=== PATIENT | female | born 1995 | race African-American/Black ===

== ENCOUNTER 2018-08-29 17:34 | Emergency (ER) | payer BC, OTHER ==
[~2018-08-29] VITALS: Ht 160 cm; Wt 69.4 kg
[2018-08-29 17:36] VITALS: BP 129/72
[2018-08-29] MEDS ORDERED: ZOFRAN ODT4 MG PO (18:39)
== END 2018-08-29 19:16 | disposition home or self-care (01) ==
LOC: ER 17:34
DX: S09.8XXA Other specified injuries of head, initial encounter (principal); V49.09XA Driver injured in collision with other motor vehicles in nontraffic accident, initial encounter; Y93.89 Activity, other specified; Y92.89 Other specified places as the place of occurrence of the external cause; Y99.8 Other external cause status